=== PATIENT | female | born 1970 | race Asian ===

== ENCOUNTER 2021-02-25 12:06 | Outpatient (REF) | payer MEDICAID, SELFPAY | END 2021-02-25 12:07 | disposition home or self-care (01) | LOC: HO.LAB 12:06 | PROVIDERS: Visit Provider Internal Medicine | DX: Z20.822 Contact with and (suspected) exposure to COVID-19 (principal) | CPT/HCPCS: C9803; U0003; U0005 ==

== ENCOUNTER 2021-02-27 08:30 | Outpatient (REF) | payer MEDICAID, SELFPAY | END 2021-02-27 08:31 | disposition home or self-care (01) | LOC: HO.LAB 08:30 | PROVIDERS: Visit Provider Internal Medicine | DX: Z20.822 Contact with and (suspected) exposure to COVID-19 (principal) | CPT/HCPCS: C9803; U0003; U0005 ==

== ENCOUNTER 2022-11-16 11:03 | Outpatient (REF) | payer MEDICAID, SELFPAY ==
[2022-11-16 15:27] LABS: Iron 27 mcg/dL (30-160); Percent Iron Saturation 7 % (15-50); Total Iron Binding Capacity 395 mcg/dL (228-428); Unsaturated Iron Binding 368 ug/dL
[2022-11-16 15:44] LABS: Ferritin 5 ng/mL (10-250)
[2022-11-16 15:48] LABS: Vitamin B12 412 pg/mL (200-900)
[2022-11-17 09:21] LABS: CT PCR NOT DETECTED (Not Detect.); NG PCR NOT DETECTED (Not Detect.)
[2022-11-17 11:47] LABS: BV Int Neg Control Negative (Negative); BV Int Pos Control Positive (Positive)
[2022-11-23 21:23] LABS: HPV mRNA E6/E7 rflx Not Detected (Not Detected)
== END 2022-11-16 11:04 | disposition home or self-care (01) ==
LOC: HO.CHCLDS 11:03
PROVIDERS: Visit Provider Pediatrics
DX: Z01.419 Encounter for gynecological examination (general) (routine) without abnormal findings (principal); Z11.51 Encounter for screening for human papillomavirus (HPV); D64.9 Anemia, unspecified
CPT/HCPCS: 0353U; 36415; 82607; 82728; 83540; 87480; 87510; 87624; 87660; 88142

== ENCOUNTER 2023-02-23 15:56 | Outpatient (REF) | payer MEDICAID, SELFPAY ==
[2023-02-23 17:20] LABS: MANUAL DIFF FLAG NO
[2023-02-23 17:40] LABS: Basophils Percent Auto 0.4 % (0-2); Eosinophils Absolute Auto 0.1 X10*3/uL (0.0-0.4); Hematocrit 40.1 % (37.0-47.0); Hemoglobin 12.9 g/dl (12.0-16.0); Imm Gran Abs Auto 0.01 X10*3/uL (0.00-0.03); Imm Gran Pct Auto 0.2 % (0.0-0.4); Lymphocytes Absolute Auto 1.8 X10*3/uL (1.2-4.9); Lymphocytes Percent Auto 36.6 % (20-40); Mean Corpuscular HGB Conc 32.2 g/dl (31.0-35.0); Mean Corpuscular Volume 90.1 fL (80.0-98.0); Mean Platelet Volume 10.1 fL (9.4-12.3); Monocytes Absolute Auto 0.5 X10*3/uL (0.1-1.2); Monocytes Percent Auto 9.1 % (2-11); Neutrophils Absolute Auto 2.6 x10*3/uL (2.0-8.3); Neutrophils Percent Auto 51.7 % (45-73); Platelet Count 238 X10*3/uL (160-400); Red Blood Count 4.45 X10*6/uL (4.20-5.50); Red Cell Distribution Width 14.8 % (11.0-16.0); White Blood Count 4.9 X10*3/uL (4.8-10.8)
[2023-02-23 17:59] LABS: TSH reflex Free T4 5.54 uIU/mL (0.32-4.0); Vitamin D 25-OH Total 33.3 ng/mL (>30)
[2023-02-23 18:38] LABS: Free T4 (Free Thyroxine) 0.99 ng/dL (0.71-1.85)
== END 2023-02-23 15:57 | disposition home or self-care (01) ==
LOC: HO.CHCLDS 15:56
PROVIDERS: Visit Provider Pediatrics
DX: E55.9 Vitamin D deficiency, unspecified (principal); E03.9 Hypothyroidism, unspecified; D50.8 Other iron deficiency anemias
CPT/HCPCS: 36415; 82306; 84439; 84443; 85025

== ENCOUNTER 2023-10-20 09:33 | Outpatient (REF) | payer MEDICAID, SELFPAY ==
[2023-10-20 15:01] LABS: MANUAL DIFF FLAG NO
[2023-10-20 15:05] LABS: Basophils Percent Auto 0.7 % (0-2); Eosinophils Absolute Auto 0.3 X10*3/uL (0.0-0.4); Eosinophils Percent Auto 6.2 % (0-4); Hematocrit 37.3 % (37.0-47.0); Hemoglobin 12.6 g/dl (12.0-16.0); Imm Gran Abs Auto 0.02 X10*3/uL (0.00-0.03); Imm Gran Pct Auto 0.5 % (0.0-0.4); Lymphocytes Absolute Auto 1.5 X10*3/uL (1.2-4.9); Mean Corpuscular HGB Conc 33.8 g/dl (31.0-35.0); Mean Corpuscular Volume 91.9 fL (80.0-98.0); Mean Platelet Volume 10.4 fL (9.4-12.3); Monocytes Absolute Auto 0.3 X10*3/uL (0.1-1.2); Monocytes Percent Auto 8.4 % (2-11); Neutrophils Percent Auto 48.2 % (45-73); Platelet Count 218 X10*3/uL (160-400); Red Blood Count 4.06 X10*6/uL (4.20-5.50); Red Cell Distribution Width 12.1 % (11.0-16.0); White Blood Count 4.1 X10*3/uL (4.8-10.8)
[2023-10-20 15:39] LABS: TSH reflex Free T4 1.74 uIU/mL (0.32-4.0)
== END 2023-10-20 09:34 | disposition home or self-care (01) ==
LOC: HO.CHCLDS 09:33
PROVIDERS: Visit Provider Pediatrics
DX: E03.9 Hypothyroidism, unspecified (principal)
CPT/HCPCS: 36415; 84443; 85025

== ENCOUNTER 2024-01-11 09:13 | Outpatient (REF) | payer MEDICAID, SELFPAY ==
[2024-01-11 13:47] LABS: MANUAL DIFF FLAG NO
[2024-01-11 14:04] LABS: Basophils Percent Auto 0.6 % (0-2); Eosinophils Absolute Auto 0.2 X10*3/uL (0.0-0.4); Eosinophils Percent Auto 4.4 % (0-4); Hematocrit 41.1 % (37.0-47.0); Imm Gran Abs Auto 0.03 X10*3/uL (0.00-0.03); Imm Gran Pct Auto 0.6 % (0.0-0.4); Lymphocytes Absolute Auto 1.1 X10*3/uL (1.2-4.9); Lymphocytes Percent Auto 21.6 % (20-40); Mean Corpuscular HGB Conc 34.1 g/dl (31.0-35.0); Mean Corpuscular Hemoglobin 31.2 pg (27.0-33.0); Mean Corpuscular Volume 91.5 fL (80.0-98.0); Mean Platelet Volume 10.2 fL (9.4-12.3); Monocytes Absolute Auto 0.4 X10*3/uL (0.1-1.2); Monocytes Percent Auto 7.7 % (2-11); Neutrophils Absolute Auto 3.4 x10*3/uL (2.0-8.3); Neutrophils Percent Auto 65.1 % (45-73); Platelet Count 233 X10*3/uL (160-400); Red Blood Count 4.49 X10*6/uL (4.20-5.50); White Blood Count 5.2 X10*3/uL (4.8-10.8)
[2024-01-11 14:23] LABS: Cholesterol 184 mg/dL (<200); HDL Cholesterol 49 mg/dL (>40); LDL Cholesterol Calculated 106 mg/dL (<100); Triglycerides 149 mg/dL (<150)
[2024-01-11 14:44] LABS: TSH reflex Free T4 3.52 uIU/mL (0.32-4.0); Vitamin D 25-OH Total 34.1 ng/mL (>30)
[2024-01-11 15:01] LABS: Folate 13.1 ng/mL (> or = 4.0); Vitamin B12 560 pg/mL (200-900)
== END 2024-01-11 09:14 | disposition home or self-care (01) ==
LOC: HO.CHCLDS 09:13
PROVIDERS: Visit Provider Pediatrics
DX: E03.9 Hypothyroidism, unspecified (principal); E55.9 Vitamin D deficiency, unspecified; D50.8 Other iron deficiency anemias
CPT/HCPCS: 36415; 80061; 82306; 82607; 82746; 84443; 85025

== ENCOUNTER 2024-03-13 08:50 | Emergency (ER) | payer OTHER, SELFPAY ==
--- NOTE | ~2024-03-13 | XR_ITS ---
EXAMINATION: XR CHEST CLINICAL INFORMATION: Chest pain COMPARISON: None available. TECHNIQUE: 2 views of the chest were obtained. FINDINGS: No significant abnormality is noted involving the heart, lungs, mediastinum, bony thorax or soft tissues. XR/XR chest 2V IMPRESSION: Unremarkable examination. Electronically signed by: Marcell Loredo MD 03/13/2024 04:41 PM [facility]
[2024-03-13 08:52] VITALS: BP 141/89; PULSE 96; RESP 18; TEMP 36.2; O2SAT 99; BMI 24.5
[2024-03-13 15:11] VITALS: BP 136/80; PULSE 79; RESP 16; TEMP 36.3; O2SAT 100
--- NOTE | 2024-03-13 15:42 | ED_ITS ---
HPI - Back Pain/Injury General Chief Complaint: Back Pain/Injury Stated Complaint: back pain Time Seen by Provider: 03/13/24 15:41 Source: patient and RN notes reviewed Mode of arrival: ambulatory Limitations: no limitations History of Present Illness ED Provider: Marci Payan PA-C HPI Narrative: This is a 53-year-old female, with a history of thyroid disease, who presents emergency department complaints of back pain x5 days. Patient states that last week she used a back massager, she woke up the next day and had worsening back pain. She has been applying warm compresses, as well as topical turmeric to the area which has provided her without any relief. She states that she noticed a rash in the area that is causing her pain 2 days ago. She also reports pain in the left side of her chest, where this rashes. She denies any shortness for breath. No fevers, chills, abdominal pain, nausea, vomiting or diarrhea. Denies history of similar symptoms in the past. No numbness, tingling, or weakness. No other complaints or concerns at this time. MD elicited complaint: back pain Onset (ago): day(s) Timing: constant Similar Symptoms Previously: No Quality: burning and aching Location: thoracic spine Radiation: chest Exacerbating factors: none Relieving factors: none Associated symptoms: denies other symptoms Work related injury: No Related Data Previous Rx's ?Medication ?Instructions ?Recorded oxycodone 5 mg tablet 5 mg PO Q6H PRN pain #7 tabs 03/13/24 prednisone 20 mg tablet 40 mg (2 x 20 mg) PO DAILY 5 days 03/13/24 #10 tabs valacyclovir 1 gram tablet 1,000 mg PO TID 7 days #21 tabs 03/13/24 Allergies Allergy/AdvReac Type Severity Reaction Status Date / Time No Known Allergies Allergy Verified 03/13/24 08:52 Review of Systems 2 Review of Systems: Yes all other systems are reviewed and are negative Constitutional: Constitutional: Reports as per [facility] Social History Social History Advance Directives: No Advance Directives Information Provided: Yes Do you have a plan to hurt others: No Plan Physical Exam 2 Vital Signs: Vital Signs: Last Vital Signs Temp 98.3 F 03/13/24 18:55 Pulse 68 03/13/24 18:55 Resp 16 03/13/24 18:55 BP 146/83 H 03/13/24 18:55 Pulse Ox 99 03/13/24 18:55 O2 Del Method Room Air 03/13/24 18:55 BMI result Body Mass Index 24.5 Const: General: cooperative, comfortable and no acute distress O rientation/consciousness: patient oriented x3 Limitations: no limitations HEENT: Head: Yes normal to inspection, Yes normocephalic and Yes atraumatic Ears: hearing grossly normal bilaterally General nose exam: Normal external nose present Face and sinus: Yes normal facial exam Mouth: Normal oral and palatal mucosa present, oropharynx normal and moist mucous membranes Throat: Yes posterior oropharynx normal Eyes: General: appearance normal, both eyes and all related structures E yelids: Yes eyelids normal Conjunctivae: conjunctivae normal Sclerae: s clerae normal Pupils: Equal, round and reactive pupils present EOM: EOMs intact bilaterally Neck: Neck: Yes normal visual inspection, Yes full ROM and Yes no lymphadenopathy Lymphatic: no lymphadenopathy noted Chest: Chest palpation & inspection: normal inspection of the chest Resp: Effort & Inspection: normal respiratory effort and able to speak in complete sentences Auscultation: clear to auscultation bilaterally, no crackles, no rales, no rhonchi and no wheezes Cardio: Rate: regular rate Rhythm: regular rhythm Heart sounds: S1 normal heart sound present and S2 normal heart sound present GI: Inspection: Yes normal to inspection Skin: Other: Extensive herpetic lesion, vesicular clusters noted overlying the left thoracic back radiating into just below the left breast. Does not cross the midline. Tender to light palpation Trauma: no lacerations or abrasions Wounds: no wounds Neuro: General: patient oriented x3 and moves all extremities Cranial nerves: Yes Equal, round and reactive pupils present Extrem: General: Yes normal to inspection Right upper extremity: normal to inspection Left upper extremity: normal to inspection Right lower extremity: normal to inspection Left lower extremity: normal to inspection Medications Administered Discontinued Medications Generic Name Dose Route Start Last Admin Trade Name Freq PRN Reason Stop Dose Admin Prednisone 40 mg 03/13/24 18:01 03/13/24 18:10 Prednisone 20 Mg Tablet PO 03/13/24 18:02 40 mg ONCE ONE Administration Valacyclovir HCl 1,000 mg 03/13/24 18:01 03/13/24 18:10 Valacyclovir Hcl 1,000 Mg Tablet PO 03/13/24 18:02 1,000 mg ONCE ONE Administration Medical Decision Making Medical Decision Making [facility] Narrative: This is a 53-year-old female who presents emergency department with complaints of left-sided back pain for the last week. Patient had pain in the developed a rash. Rash is consistent with herpes zoster. Discussed with patient. Given she reports that she has had some pain in her chest, which has been constant, likely secondary to the rash, we will obtain chest x-ray, EKG and basic labs. Chest x-ray unremarkable. EKG normal sinus rhythm, labs revealing no electrolyte derangement, no significant leukopenia or leukocytosis. Will discharge patient on valacyclovir, and prednisone, 1st doses given in the department. She states that her pain is well controlled with Tylenol however will give short course of oxycodone should her pain worsened. She understands and agrees with the overall plan. Given strict return precautions. Patient stable for discharge Differential Diagnosis Differential Diagnoses: The differential diagnosis associated with the presentation includes Herpes zoster, cellulitis, muscle strain, contact dermatitis Lab Data [facility] Lab Attestation statement: I reviewed the patient's lab results. See [facility] 03/13/24 16:29 03/13/24 16:29 Labs: Lab Results 03/13/24 Range/Units 16:29 WBC 4.5 L (4.8-10.8) X10*3/uL RBC 4.47 (4.20-5.50) X10*6/uL Hgb 13.7 (12.0-16.0) g/dl Hct 40.8 (37.0-47.0) % MCV 91.3 (80.0-98.0) fL MCH 30.6 (27.0-33.0) pg MCHC 33.6 (31.0-35.0) g/dl RDW 11.9 (11.0-16.0) % Plt Count 178 (160-400) X10*3/uL MPV 9.2 L (9.4-12.3) fL Immature Gran % (Auto) 0.2 (0.0-0.4) % Neut % (Auto) 54.7 (45-73) % Lymph % (Auto) 26.4 (20-40) % Carroll % (Auto) 12.1 H (2-11) % Eos % (Auto) 6.2 H (0-4) % Baso % (Auto) 0.4 (0-2) % Lymph # (Auto) 1.2 (1.2-4.9) X10*3/uL Carroll # (Auto) 0.6 (0.1-1.2) X10*3/uL Eos # (Auto) 0.3 (0.0-0.4) X10*3/uL Baso # (Auto) 0.0 (0.0-0.2) X10*3/uL Abs Immat Gran (auto) 0.01 (0.00-0.03) X10*3/uL Absolute Neuts (auto) 2.5 (2.0-8.3) x10*3/uL Absolute Nucleated RBC 0.000 (0.0-0.012) X10*3/uL Nucleated RBC % (auto) 0.0 (0.0-0.2) /100WBC Sodium 139 (135-145) mmol/L Potassium 3.9 (3.3-5.1) mmol/L Chloride 106 (96-108) mmol/L Carbon Dioxide 27 (22-29) mmol/L Anion Gap 10 L (12-20) BUN 9 (9-16) mg/dL Creatinine 0.74 (0.5-1.4) mg/dL Estim Creat Clear Calc 78.2 Estimated GFR > 60 Random Glucose 139 H (60-115) mg/dL Calcium 9.0 (8.4-10.2) mg/dL Total Bilirubin 0.3 (0.0-1.0) mg/dL AST 28 (5-31) U/L ALT 24 (0-31) U/L Alkaline Phosphatase 75 (39-117) U/L Troponin I High Sens < 2.7 (<3.5-17.0) ng/L Total Protein 7.3 (6.5-8.0) g/dL Albumin 4.1 (3.5-5.0) g/dL Independent Interpretation I performed an independent interpretation of an: EKG Interpretation: EKG normal sinus rhythm at a ventricular rate of 74 beats per minute, no ST elevation or depression. Radiology Impression Discussion of test interpretation with radiology: I have reviewed the radiologist's reading. Radiologist Impression: XR/XR chest 2V IMPRESSION: Unremarkable examination. Electronically signed by: Marcell Loredo MD 03/13/2024 04:41 PM [facility] Dictated By: Marcell Loredo MD Discharge Plan Discharge Clinical Impression: Herpes zoster Patient Disposition: Home, Self-Care Instructions: Shingles (ED) Additional Instructions: You were seen in the emergency department due to back pain. You have herpes zoster, this is a virus caused by the chickenpox virus. Please take prescribed medication as directed. We gave you your 1st dose of the antiviral here in the department as well as prednisone. Please take valacyclovir 3 times per day for 7 days. Please take prednisone once per day for 5 days. Please be advised prednisone can give energy, I would take this in your morning or afternoon dosage. Please take Tylenol as needed for pain. You have severe pain, please take oxycodone only needed for severe pain only. Please be advised that this is addictive, can cause drowsiness, do not drink alcohol or operate any heavy machinery while taking this medication. Please follow-up with your primary care physician. If any new or worsening symptoms occur including but not limited to severe chest pain, shortness of breath, please seek emergent care. Prescriptions: New valacyclovir 1 gram tablet 1,000 mg PO TID 7 Days Qty: 21 0RF prednisone 20 mg tablet 40 mg PO DAILY 5 Days Qty: 10 0RF oxycodone 5 mg tablet 5 mg PO Q6H PRN (Reason: pain) Qty: 7 0RF Rx Instructions: Partial Fill upon patient request. Interventions: ED Discharge Assessment Last Done: 03/13/24 18:55 Discharge Date/Time: 03/13/24 18:56 Print Language: Nicolette
--- NOTE | 2024-03-13 16:02 | ECG_ITS ---
Test Reason : CHEST PAIN Blood Pressure : / mmHG Vent. Rate : 074 BPM Atrial Rate : 074 BPM P-R Int : 146 ms QRS Dur : 076 ms QT Int : 388 ms P-R-T Axes : 039 056 065 degrees QTc Int : 430 ms Normal sinus rhythm Normal ECG No previous ECGs available Referred By: Marci Payan Electronically Signed By:Jordon Ochoa
[2024-03-13 16:36] LABS: MANUAL DIFF FLAG NO
[2024-03-13 16:45] LABS: Basophils Percent Auto 0.4 % (0-2); Eosinophils Absolute Auto 0.3 X10*3/uL (0.0-0.4); Eosinophils Percent Auto 6.2 % (0-4); Hematocrit 40.8 % (37.0-47.0); Hemoglobin 13.7 g/dl (12.0-16.0); Imm Gran Abs Auto 0.01 X10*3/uL (0.00-0.03); Imm Gran Pct Auto 0.2 % (0.0-0.4); Lymphocytes Absolute Auto 1.2 X10*3/uL (1.2-4.9); Lymphocytes Percent Auto 26.4 % (20-40); Mean Corpuscular HGB Conc 33.6 g/dl (31.0-35.0); Mean Corpuscular Hemoglobin 30.6 pg (27.0-33.0); Mean Corpuscular Volume 91.3 fL (80.0-98.0); Mean Platelet Volume 9.2 fL (9.4-12.3); Monocytes Absolute Auto 0.6 X10*3/uL (0.1-1.2); Monocytes Percent Auto 12.1 % (2-11); Neutrophils Absolute Auto 2.5 x10*3/uL (2.0-8.3); Neutrophils Percent Auto 54.7 % (45-73); Platelet Count 178 X10*3/uL (160-400); Red Blood Count 4.47 X10*6/uL (4.20-5.50); Red Cell Distribution Width 11.9 % (11.0-16.0); White Blood Count 4.5 X10*3/uL (4.8-10.8)
[2024-03-13 16:56] LABS: Alanine Aminotransferase 24 U/L (0-31); Albumin Level 4.1 g/dL (3.5-5.0); Alkaline Phosphatase 75 U/L (39-117); Anion Gap 10 (12-20); Aspartate Amino Transferase 28 U/L (5-31); Bilirubin Total 0.3 mg/dL (0.0-1.0); Blood Urea Nitrogen 9 mg/dL (9-16); Carbon Dioxide 27 mmol/L (22-29); Chloride 106 mmol/L (96-108); Creatinine Clr Calc Pharmacy 78.2; Estimated Glomerular Filt Rate > 60; Glucose Random 139 mg/dL (60-115); Potassium 3.9 mmol/L (3.3-5.1); Sodium 139 mmol/L (135-145); Total Protein 7.3 g/dL (6.5-8.0)
[2024-03-13 17:07] LABS: Troponin-I High Sensitivity < 2.7 ng/L (<3.5-17.0)
[2024-03-13 18:02] VITALS: BP 146/83; PULSE 68; RESP 16; TEMP 36.8; O2SAT 99
[2024-03-13] MEDS: predniSONE 20 MG TABLET 40 MG PO (18:10)
[2024-03-13] MEDS: valACYclovir HCL 1,000 MG TABLET 1000 MG PO (18:10)
[2024-03-13 18:55] VITALS: BP 146/83; PULSE 68; RESP 16; TEMP 36.8; O2SAT 99
== END 2024-03-13 18:56 | disposition home or self-care (01) ==
PROVIDERS: Physician Assistant Medical; Emergency Provider Emergency Medicine
DX: B02.9 Zoster without complications (principal); M54.9 Dorsalgia, unspecified; R21 Rash and other nonspecific skin eruption; R07.9 Chest pain, unspecified
CPT/HCPCS: 36415; 71046; 80053; 84484; 85025; 93005; 99283; 99284

== ENCOUNTER → 2024-03-13 16:02 | Outpatient (BNV) | payer SELFPAY | PROVIDERS: Emergency Provider Emergency Medicine; Visit Provider Internal Medicine Cardiovascular Disease | DX: R07.9 Chest pain, unspecified (principal) | CPT/HCPCS: 93010 ==

== ENCOUNTER 2024-08-24 09:06 | Outpatient (REF) | payer OTHER, SELFPAY ==
--- OUTSIDE RECORDS SUMMARY | 2024-08-24 09:18 | XMS_ITS | Clinical Summary ---
Author Organization [facility] Address [address] [place] [address] Phone Care Team Providers Care Special Events Manager Name Role Phone Wendy Jensen MD Primary Care Provider [phone] Social History Tobacco Use Types Packs/Day Years Used Date Smoking Tobacco: Never Assessed Comments No Sex and Gender Information Value Date Recorded Sex Assigned at Not on file Legal Sex Female 6:10 PM EST Gender Identity Not on file Sexual Orientation Not on file Obstetrics History Para Term AB IAB SAB Ectopic Multiple Livin g Live Births 2 Last Filed Vital Signs Vital Sign Reading Time Taken Comments Blood Pressure - - Pulse - - Temperature - - Respiratory Rate - - Oxygen Saturation - - Inhaled Oxygen Concentration - - Weight 65.8 kg (145 lb) 05/03/2024 10:06 AM EST Height 162.6 cm (5' 4 ) 05/03/2024 10:06 AM EST Body Mass Index 24.89 05/03/2024 10:06 AM EST Plan of Treatment Health Maintenance Due Date Last Done Comments Hepatitis B Vaccines (1 of 3 - 19+ 3-dose series) 1988 Pneumococcal Vaccine: 50+ Years (1 of 1 - PCV) 10/24/2019 Zoster Vaccines (1 of 2) 10/24/2019 HIV Screening 05/31/2023 Hepatitis C Screening 05/31/2023 Social Influencers of Health Screening 05/31/2023 COVID-19 Vaccine ( - 2023-2 5 season) 2024 04/27/2022, 09/14/2020, 08/24/2020 Depression Screening 04/10/2025 04/10/2024 Cervical Cancer Screening: P ap Smear 11/16/2025 11/16/2022 Colorectal Cancer Screening: FIT-DNA (Cologuard) 12/09/2025 12/09/2022, 12/09/2022 Breast Cancer Screening 05/03/2026 05/03/19, 11/04/2022 DTaP,Tdap,and Td Vaccines (2 - Td or Tdap) 03/30/2028 03/30/2018 Influenza Vaccine Completed 01/10/2024, 02/23/2023, 03/30/2018 HIB Vaccines Aged Out No longer eligi ble based on patient's age to complete this topic HPV Vaccines Aged Out No longer eligi ble based on patient's age to complete this topic Hepatitis A Vaccines Aged Out No long er eligible based on patient's age to complete this topic IPV Vaccines Aged Out No longer eligi ble based on patient's age to complete this topic MMR Vaccines Aged Out No longer eligi ble based on patient's age to complete this topic Meningococcal ACWY Vaccine Aged Out N o longer eligible based on patient's age to complete this topic Meningococcal B Vaccine Aged Out No l onger eligible based on patient's age to complete this topic Pneumococcal Vaccine: Pediatrics (0 to 5 Years) and At-Risk Patients (6 to 64 Years) Aged Out No longer eligible b ased on patient's age to complete this topic RSV Immunization Patients Under 20 months Aged Out No longer eligible b ased on patient's age to complete this topic Varicella Vaccines Aged Out No longer eligible based on patient's age to complete this topic Procedures Procedure Name Priority Date/Time Associated Diagnosis Comments MG MAMMO DIGITAL SCREENING W DC BILAT Routine 05/03/2024 10:12 AM EST Encounter for screening mammogram for malignant neoplasm of breast from Last 3 Months or Most Recently Relevant to Health Maintenance Results * MG Mammo Digital Screening w Dc bilat (05/03/2024 10:12 AM EST) Anatomical Region Laterality Modality Breast Bilateral Mammography 05/03/2024 10:2 3 AM EST Impressions 05/03/2024 10:29 AM EST No mammographic evidence of malignancy. A negative mammogram in the presence of a clinically suspicious palpable abnormality does not preclude the possibility of malignancy or alter the indications for biopsy. PQRI CPT II 3342F Code 46300, 32302 PQRI 225 CPT II 7025F TISSUE DENSITY: There are scattered areas of fibroglandular density. (BI-RADS category B) IMPRESSION: Benign. BI-RADS CATEGORY: 2 - BENIGN RECOMMENDATION: Screening bilateral mammogram is recommended in 1 year. Mammo Location: [facility], [address] [place] [address] -------- FINAL REPORT -------- Dictated By: Vikas Aguilar Dictated Date: 05/03/2024 10:23 ET Assigned Physician: Vikas Aguilar Reviewed and Electronically Signed By: Vikas Aguilar Signed Date: 05/03/2024 10:29 ET Workstation ID: [id number] Transcribed By: Self Edit Transcribed Date: 05/03/2024 10:23 ET Narrative 05/03/2024 10:29 AM EST CLINICAL: The patient is a 53 years Female presenting for routine screening mammography. COMPARISON: 11/09/2022 and 10/11/2022. ?? TECHNIQUE: Full-field digital mammography of the breasts bilaterally consisting of tomosynthesis in MLO and CC projection is performed in the [facility] 2000-D unit. ??Computer aided detection utilizing the [employer] system was utilized. FINDINGS: The breasts are seen to be composed of a combination of fatty and fibroglandular elements. ??Vascular calcifications are again noted bilaterally. ??There is no suspicious cluster of microcalcifications, mass, or area of architectural distortion. There is no skin thickening or nipple retraction. Procedure Note Vikas Aguilar MD - 05/03/2024 CLINICAL: The patient is a 53 years Female presenting for routinescreening mammography. COMPARISON: 11/09/2022 and 10/11/2022. TECHNIQUE: Full-field digital mammography of the breasts bilaterallyconsisting of tomosynthesis in MLO and CC projection [facility]. Computer aided detection utilizing the iCADsystem was utilized. FINDINGS: The breasts are seen to be composed of a combination of fattyand fibroglandular elements. Vascular calcifications are again notedbilaterally. There is no suspicious cluster of microcalcifications, mass,or area of architectural distortion. There is no skin thickening or nippleretraction. IMPRESSION: No mammographic evidence of malignancy. A negative mammogram in the presence of a clinically suspicious palpableabnormality does not preclude the possibility of malignancy or alter theindications for biopsy. PQRI CPT II 3342F Code 99070, 98426 PQRI 225 CPT II 7025F TISSUE DENSITY: There are scattered areas of fibroglandular density.(BI-RADS category B) IMPRESSION: Benign. BI-RADS CATEGORY: 2 - BENIGN RECOMMENDATION: Screening bilateral mammogram is recommended in 1 year. Mammo Location: [facility], [address] [place] [id number] -------- FINAL REPORT -------- Dictated By: Vikas Aguilar Dictated Date: 05/03/2024 10:23 ET Assigned Physician: Vikas Aguilar Reviewed and Electronically Signed By: Vikas Aguilar Signed Date: 05/03/2024 10:29 ET Workstation ID: [id number] Transcribed By: Self Edit Transcribed Date: 05/03/2024 10:23 ET Wendy Jensen MD IMG BI PROCEDURES Final Resul t from Last 3 Months or Most Recently Relevant to Health Maintenance Insurance MEDICA[place] [facility] PL[facility] Care Teams Special Events Manager Relationship Specialty Start Date End Date Wendy Jensen MD [address] [place] [address] PCP - General Internal Medicine 05/03/24
--- OUTSIDE RECORDS SUMMARY | 2024-08-24 09:18 | XMS_ITS | Clinical Summary ---
Author Organization [employer] Address [address] [facility] 7t [place] [address] Care Team Providers Care Tin Flopper Name Role Phone Wendy Jensen MD Primary Care Provider [phone] Allergies No known active allergies Medications cholecalciferol (Vitamin D-3) 50 MCG (1999) capsule Take 1 capsule (50 mcg) by mouth in the morning. 90 capsule 3 06/15/2023 Active levothyroxine (Synthroid) 125 MCG tablet TAKE 1 TABLET BY MOUTH EVERY DAY 90 tablet 1 04/10/2024 Active Active Problems Problem Noted Date Diagnosed Date Herpes zoster without complication 04/10/2024 Vitamin D deficiency 11/16/2022 Anemia 11/16/2022 Acquired hypothyroidism 09/23/2022 Encounters Date Type Department Care Team Description 08/23/2024 10:30 AM EDT Office Visit [facility] MED & PEDS [address] [place] [address] Wendy Jensen MD Acquired hypothyroidism (Primary Dx); Vitamin D deficiency; Iron deficiency anemia secondary to inadequate dietary iron intake; Encounter for immunization 08/23/2024 Telephone [facility] [address] [place] [address] Wendy Jensen MD Insurance 08/23/2024 Travel 08/22/2024 Telephone [facility] MEDICINE [address] [place] [address] Wendy Jensen MD Nurse Triage 06/06/2024 Telephone [facility] [address] [place] [address] Wendy Jensen MD Pre Op from Last 3 Months Immunizations Name Administration Dates Next Due Influenza injectable quadriv alent IIV4 with preservative 03/30/2018 Influenza injectable quadrivalent preservative f ree 02/23/2023 Influenza, seasonal, injectable, preservative fr ee 01/10/2024 Pneumococcal Conjugate PCV 20 08/23/2024 Tdap 03/30/2018 Family History Medical History Relation Name Comments Diabetes Father Heart attack Mother Brain Aneurysm Sister Relation Name Status Comments Father Mother Sister Social History Tobacco Use Types Packs/Day Years Used Date Smoking Tobacco: Never Passive Smoke Exposure: Never Smokeless Tobacco: Never Tobacco Cessation:Counseling Given: Not Answered Depression Answer Date Recorded Patient Health Questionnaire-9 Score 7 04/10/2024 Patient Health Questionnaire-9 Score 7 04/10/2024 Last PHQ-9: Questionnaire Data Not on file 1 06/11/2023 Housing Stability Answer Date Recorded What is your housing situation today? I have leatha brothers 04/10/[address] you li ve. Do you have problems with any of the following? None of the above 04/10/2024 Food Insecurity Answer Date Recorded Within the past 12 months, y ou worried that your food would run out before you got money to buy more: Never True 04/10/2024 Within the past 12 months,th e food you bought just didn't last and you didn't have enough money to get more: Never True 01/2024 Transportation Answer Date Recorded In the past 12 months, has l ack of transportation kept you from medical appts, meetings, work or from getting things needed for daily living? No 04/10/2024 Utilities Answer Date Recorded In the past 12 months, has t he electric, gas, oil or water company threatened to shut off services in your home? No 04/10/2024 Depression Answer Date Recorded Patient Health Questionnaire-2 Score 3 04/10/2024 Internet Access Answer Date Recorded Internet Access Q1 Yes 04/10/2024 Internet Access Q2 Not on file 04/10/2024 Education Answer Date Recorded What is the highest level of school you have completed or the highest degree you have received? Bachelor's degree (e.g., BA, AB, BS) 09/23/2022 Comments Unknown Sex and Gender Information Value Date Recorded Sex Assigned at Female 09/23/2022 9:39 AM EDT Legal Sex Female 2:27 PM EDT Gender Identity Female 09/23/2022 9:39 AM EDT Sexual Orientation Straight 09/23/2022 9: 42 AM EDT Last Filed Vital Signs Vital Sign Reading Time Taken Comments Blood Pressure 120/70 08/23/2024 10:24 AM EDT Pulse 72 08/23/2024 10:24 AM EDT Temperature 36.2 ??C (97.1 ??F) 08/23/2024 10:24 AM E DT Respiratory Rate 12 08/23/2024 10:24 AM EDT Oxygen Saturation 97% 03/23/2024 3:11 PM EST Inhaled Oxygen Concentration - - Weight 66.2 kg (146 lb) 08/23/2024 10:24 AM EDT Height 170.2 cm (5' 7 ) 08/23/2024 10:24 AM EDT Body Mass Index 22.87 08/23/2024 10:24 AM EDT Plan of Treatment Upcoming Encounters Date Type Department Care Team ([facility] st Contact Info) Description 09/27/2024 10:00 AM EDT Office Visit [facility] MED & PEDS [address] [place] [address] Wendy Jensen MD [address] [place] [address] Health Maintenance Due Date Last Done Comments CT Colonography 1970 Colonoscopy 1970 FIT 1970 FOBT 1970 HIV Screening 1970 Sigmoidoscopy 1970 Hepatitis B Vaccines (1 of 3 - 19+ 3-dose series) 1988 Zoster Vaccines (1 of 2) 10/24/2019 COVID-19 Vaccine ( season) 2024 04/27/2022, 09/14/2020, 08/24/2020 Tobacco Screening 03/23/2025 03/23/2024 Alcohol/Substance Use Screening 04/10/2025 04/10/2024 Depression Screening 04/10/2025 04/10/2024, 04/10/20 24 SDOH Screening 04/10/2025 04/10/2024 Colorectal Cancer Screening 12/09/2025 FIT DNA/Cologuard 12/09/2025 12/09/2022 Mammogram 05/03/2026 05/03/2024, 06/2024, 05/03/2024, Additional history exists Cervical Cancer Screening 11/17/2027 HPV/Cotest 11/17/2027 11/16/2022 Pap Smear 11/17/2027 11/16/2022 DTaP/Tdap/Td Vaccines (2 - Td or Tdap) 03/30/2028 03/30/2018 RSV Patients and Patients Aged 60 years or older (1 - 1-dose 75+ series) 2044 Hepatitis C Screening Completed 09/24/2022 Influenza Vaccine Completed 01/10/2024, , 03/30/2018 Pneumococcal Vaccine: 50+ Years Completed 08/23/2024 HIB Vaccines Aged Out No longer eligi [...] patient's age to complete this topic Meningococcal Vaccine Aged Out No lesley shaye eligible based on patient's age to complete this topic RSV under 20 months Aged Out No longe r eligible based on patient's age to complete this topic Rotavirus Vaccines Aged Out No longer eligible based on patient's age to complete this topic Procedures Procedure Name Priority Date/Time Associated Diagnosis Comments MAMMOGRAPHY Routine 05/03/2024 1:57 PM EST HPV MRNA E6/E7 REFLEX TO HPV 16, 18/45 Routine 11/16/2022 11:00 AM EDT PAP SMEAR Routine 11/16/2022 11:00 AM EDT Anemia, unspecified type Acquired hypothyroidism Vitamin D deficiency Encounter for gynecological examination with Papanicolaou smear of cervix HEPATITIS PANEL, GENERAL Routine 09/24/2022 9:31 AM EDT Acquired hypothyroidism from Last 3 Months or Most Recently Relevant to Health Maintenance Results * Mammography (05/03/2024 1:57 PM EST) Anatomical Region Laterality Modality Other us Historical Provider HEALTH MAINTENANCE Final Result * HPV mRNA E6/E7 w/Reflex to HPV Genotypes 16, 18/45 (11/16/2022 11:00 AM EDT) HPV nRNA E6/E7 Not Detected Not Detected [facility] Comment:Methodology: Transcr iption-Mediated AmplificationThis assay detects E6/E7 viral messenger RNA (mRNA) from 14high-risk HPV types (16,18,31,33,35,39,45,51,52,56,58,59,66,68).Cervical sources are required for HPV testing.If a vaginal source from a patient who has had atotal hysterectomy with removal of cervix wassubmitted, please contact the testing laboratoryfor alternative testing options.For additional information, please refer tohttp://education.[employer]am[employer] technologies/faq/MQE296c9(This link if provided for information/educational purposes only.)THIS TEST WAS PERFORMED AT:[facility] [place] [phone] SHEIKH MD HPV mRNA E6/E7 [facility] HPV 16 RNA [facility] HPV 18/45 RNA [facility] 11/16/2022 11:0 0 AM EDT 11/18/2022 8:30 AM EDT us Wendy Jensen MD LAB CYTOLOGY ORDERABLES Final Result [facility] [address] [place] [phone] [phone] * Pap Smear (11/16/2022 11:00 AM EDT) Swab Cervix uteri structure / Unknown 11/16/2022 11:00 AM EDT 11/18/2022 8:30 AM EDT Narrative [facility] - 12/05/2022 5:07 PM EDT ----- ------- Name: Ana Pacheco ? Age/Sex: 52/F ? : 1970 Unit#: [id number] ?? Attend Dr: Wendy Jensen MD ?Re11/16/22 ?Status: DEP REF ? Location: [facility] ? Disch: ? ----- ------- SPEC : [id number] ? RECD: 11/18/22 ? STATUS: ??SOUT ? REQ NUM: [id number] ? DICKSON: 11/16/22-1099 ? SUBM DR: Wendy Jensen MD ? ENTERED: ??11/18/22120 ?SP TYPE: Pap Smr ?OTHR DR: ? ORDERED: ??Pap Smear ? Interpretation ?? Satisfactory for evaluation. ?? Negative for intraepithelial lesion or malignancy. ? HPV mRNA E6/E7: ?NOT DETECTED ? This assay detects E6/E7 viral messenger RNA (mRNA) from 14 high-risk HPV types (16, 18, ?? 31, 33, 35, 39, 45, 51, 52, 56, 58, 59, 66, 68) ? HPV testing performed by [facility], [place], [place]. ??See reference laboratory ?? portion of the EMR for entire report. ?Clinical Information LMP: 10/30/22 Previous PAP test: Unknown date/findings ? Material Received ?? ThinPrep-Cervical ----- ------- Signed (signature on file) Marci Jaeger 12/05/221706 ? ----- ------- ? END OF REPORT ? us Wendy Jensen MD LAB CYTOLOGY ORDERABLES Final Result Performing Organization Address City/[facility]/ZIP Co de Phone Number [facility] [address] [place] [address] [phone] * (ABNORMAL) Hepatitis Panel, General (09/24/2022 9:31 AM EDT) Hepatitis A Antibody Total REACTIVE( A) NON-REACT GAYLE [employer] [facility] [place] Comment: For additional information, please refer to http://Mod[employer]amaze technologies/faq/ALG475 (This link is being provided for informational/ educational purposes only.) Hepatitis B Surface Antibody QL NON-REACT GAYLE NON-REACT GAYLE [employer] [facility] [place] Hepatitis B Surface Ag NON-REACT GAYLE NON-REACT GAYLE [employer] [facility] [place] Hepatitis B Core Antibody Total NON-REACT GAYLE NON-REACT GAYLE [employer] [place] Hepatitis C Antibody NON-REACT GAYLE NON-REACT GAYLE [employer] [place] Index 0.23 <1.00 [employer] [facility] [place] Comment: HCV antibody was non-reactive. There is no laboratory evidence of HCV infection. In most cases, no further action is required. However, if recent HCV exposure is suspected, a test for HCV RNA (test code 30226) is suggested. For additional information please refer to http://Modlar.[employer]am[employer] technologies/faq/WNB74t5 (This link is being provided for informational/ educational purposes only.) 09/24/2022 9:31 AM EDT 09/24/2022 9:31 AM EDT Narrative [facility] - 09/25/2022 7:29 AM EDT FASTING:YES FASTING: YES us Wendy Jensen MD LAB BLOOD ORDERABLES Final Re sult Performing Organization Address City/[facility]/ZIP Co de Phone Number [facility] [address], [place] [address] [employer] [place] [facility] [address] [place] [address] from Last 3 Months or Most Recently Relevant to Health Maintenance Insurance [facility] Care Teams Tin Flopper Relationship Specialty Start Date End Date Wendy Jensen MD [address] [place] [id number] PCP - General Internal Medicine 09/01/22
--- OUTSIDE RECORDS SUMMARY | 2024-08-24 09:18 | XMS_ITS | Encounter Summary ---
Author Organization [employer] Address [address] [facility] 7t [place] [address] Care Team Providers Care Boiler House Mechanic Name Role Phone Wendy Jensen MD Primary Care Provider [phone] Reason for Visit * Reason Onset Date Comments Nurse Triage 08/22/2024 Encounter Details Date Type Department Care Team (Late st Contact Info) Description 08/22/2024 Telephone [facility] MEDICINE [address] [place] [address] Wendy Jensen MD [address] [place] [address] Nurse Triage Social History Tobacco Use Types Packs/Day Years Used Date Smoking Tobacco: Never Passive Smoke Exposure: Never Smokeless Tobacco: Never Depression Answer Date Recorded Patient Health Questionnaire-9 [...] t he electric, gas, oil or water [employer] threatened to shut off services in your [...] Orientation Straight 09/23/2022 9: 42 AM EDT documented as of this encounter Miscellaneous Notes * Telephone Encounter - Rosa Lane RN - 08/22/2024 3:14 PM EDT called pt to triage, spoke to pt. pt states persistent fatigue, difficulty sleeping, and aching allover. pt denies illness symptoms, fevers, rash, sob, or other associated symptoms. pt requesting appt only with PCP and was given appt tomorrow with PCP at 10:30 for exam. advised home care: rest, fluids, lie down, good nutrition, consistent bedtime, and call back as needed. pt understands and agrees with plan. insurance verified. Protocol Used: Weakness (Generalized) and Fatigue (Adult) Protocol-Based Disposition: See in Office or Video Visit within 3 Days Video visit offer not recorded Positive Triage Question: * Fatigue (i.e., tires easily, decreased energy) and persists > 1 week * All higher-acuity triage questions were negative Care Advice Discussed: * Reassurance and Education - Mild Fatigue or Weakness * Reasons To Call Back - Unable to stand or walk - Passes out - Breathing difficulty occurs - You become worse * Reassurance and Education - Mild Dehydration * Drink Fluids * Rest * Cool Off * Reasons To Call Back - You become worse * Telephone Encounter - Kerri Gaffney - 08/22/2024 1:44 PM EDT Symptoms: Weakness, Sleeping Difficulty, Lethargic (Tired) Outcome: Transfer to a nurse or provider NOW! Reason: Hard to wake up The caller accepted this outcome. [phone] documented in this encounter Plan of Treatment Upcoming Encounters Date Type Department Care Team ([facility] st Contact Info) Description 09/27/2024 10:00 AM EDT Office Visit [facility] MED & PEDS [address] [place] [address] Wendy Jensen MD [address] [place] [address] documented as of this encounter Visit Diagnoses Not on filedocumented in this encounter Additional Health Concerns Assessment Noted Time PHQ-9 Depression Total Score: 7 04/10/20 24 9:33 AM EST documented as of this encounter Care Teams Boiler House Mechanic Relationship Specialty Start Date End Date Wendy Jensen MD [address] [place] [address] PCP - General Internal Medicine 09/01/22 documented as of this encounter
--- OUTSIDE RECORDS SUMMARY | 2024-08-24 09:18 | XMS_ITS | Encounter Summary ---
Author Organization [employer] Address [address] [facility] 7[address] [place] [address] Care Team Providers Care Computer Hardware Developer Name Role Phone Wendy Jensen MD Primary Care Provider [phone] Encounter Details Date Type Department Care Team ([facility] st Contact Info) Description 02/24/2023 Orders Only [facility] MED & PEDS [address] [place], [place] [phone] Wendy Jensen MD [address] [place] [address] Social History Tobacco Use Types Packs/Day Years Used Date Smoking Tobacco: Never Passive Smoke Exposure: Never Smokeless Tobacco: Never Depression Answer Date Recorded Patient Health Questionnaire-9 Score 1 02/23/2023 Patient Health Questionnaire-9 Score 1 02/23/2023 Last PHQ-9: Questionnaire Data Not on file 1 Housing Stability Answer Date Recorded What is your housing situation today? I have leatha brothers 02/15/[address] you li ve. Do you have problems with any of the following? None of the above 02/15/2023 Food Insecurity Answer Date Recorded Within the past 12 months, y ou worried that your food would run out before you got money to buy more: Never True 02/15/2023 Within the past 12 months,th e food you bought just didn't last and you didn't have enough money to get more: Never True Transportation Answer Date Recorded In the past 12 months, has l ack of transportation kept you from medical appts, meetings, work or from getting things needed for daily living? No 02/15/2023 Utilities Answer Date Recorded In the past 12 months, has t he electric, gas, oil or water company threatened to shut off services in your home? No 02/15/2023 Depression Answer Date Recorded Patient Health Questionnaire-2 Score 1 02/23/2023 Education Answer Date Recorded What is the [...] AM EDT documented as of this encounter Plan of Treatment Upcoming Encounters Date Type Department Care Team ([facility] st Contact Info) Description 09/27/2024 10:00 AM EDT Office Visit [facility] MED & PEDS [address] [place] [address] Wendy Jensen MD [address] [place] [address] documented as of this encounter Visit Diagnoses Not on filedocumented in this encounter Additional Health Concerns Assessment Noted Time PHQ-9 Depression Total Score: 1 02/24/20 3:27 PM EDT documented as of this encounter Care Teams Computer Hardware Developer Relationship Specialty Start Date End Date Wendy Jensen MD [address] [place] [address] PCP - General Internal Medicine 09/01/22 documented as of this encounter
--- OUTSIDE RECORDS SUMMARY | 2024-08-24 09:18 | XMS_ITS | Encounter Summary ---
Author Organization [employer] Address [address] [facility] [address] [place] [address] Care Team Providers Care Fabrication Machine Operator Name Role Phone Wendy Jensen MD Primary Care Provider [phone] Encounter Details Date Type Department Care Team (Latest Contact Info) Description 08/23/2024 Travel Social History Tobacco Use Types Packs/Day Years [...] Upcoming Encounters Date Type Department Care Team (Late st Contact Info) Description 09/27/2024 10:00 AM EDT Office Visit [facility] MED & PEDS [address] [place] [address] Wendy Jensen MD [address] [place] [address] documented as of this encounter Visit Diagnoses Not on filedocumented in this encounter Additional Health Concerns Assessment Noted Time PHQ-9 Depression Total Score: 7 04/10/20 24 9:33 AM EST documented as of this encounter Care Teams Fabrication Machine Operator Relationship Specialty Start Date End Date Wendy Jensen MD [address] [place] [address] PCP - General Internal Medicine 09/01/22 documented as of this encounter
--- OUTSIDE RECORDS SUMMARY | 2024-08-24 09:18 | XMS_ITS | Encounter Summary ---
Author Organization [employer] Address [address] [facility] 7t [place] [address] Care Team Providers Care Senior Windows Engineer Name Role Phone Wendy Jensen MD Primary Care Provider [phone] Reason for Visit * Reason Comments Med Refill Encounter Details Date Type Department Care Team ([facility] Contact Info) Description 02/12/2023 Refill [facility] MED & PEDS [address] [place], [place] [phone] Wendy Jensen MD [address] [place] [address] Social History Tobacco Use Types Packs/Day Years Used Date Smoking Tobacco: Never Passive Smoke Exposure: Never Smokeless Tobacco: Never Housing Stability Answer Date Recorded What is [...] off services in your home? No 02/15/2023 Education Answer Date Recorded What is the [...] Description 09/27/2024 10:00 AM EDT Office Visit [facility] MED & PEDS [address] [place] [address] Wendy Jensen MD [address] [place] [address] documented as of this encounter Visit Diagnoses Not on filedocumented in this encounter Care Teams Senior Windows Engineer Relationship Specialty Start Date End Date Wendy Jensen MD [address] [place] [address] PCP - General Internal Medicine 09/01/22 documented as of this encounter
--- OUTSIDE RECORDS SUMMARY | 2024-08-24 09:18 | XMS_ITS | Encounter Summary ---
Author Organization [employer] Address [address] [facility] 7t [place] [address] Care Team Providers Care Realtime Reporter Name Role Phone Wendy Jensen MD Primary Care Provider [phone] Encounter Details Date Type Department Care Team (Latest Contact Info) Description 08/23/2024 10:30 AM EDT Office Visit [facility] [address], [place] [phone] Wendy Jensen MD [address] [place] [address] Acquired hypothyroidism (Primary Dx); Vitamin D deficiency; Iron deficiency anemia secondary to inadequate dietary iron intake; Encounter for immunization Social History Tobacco Use Types Packs/Day Years [...] AM EDT documented as of this encounter Last Filed Vital Signs Vital Sign Reading Time Taken Comments Blood Pressure 120/70 08/23/2024 10:24 AM EDT Pulse 72 08/23/2024 10:24 AM EDT Temperature 36.2 ??C (97.1 ??F) 08/23/2024 10:24 AM E DT Respiratory Rate 12 08/23/2024 10:24 AM EDT Oxygen Saturation - - Inhaled Oxygen Concentration - - Weight 66.2 kg (146 lb) 08/23/2024 10:24 AM EDT Height 170.2 cm (5' 7 ) 08/23/2024 10:24 AM EDT Body Mass Index 22.87 08/23/2024 10:24 AM EDT documented in this encounter Progress Notes * Wendy Jensen MD - 08/23/2024 10:30 AM EDT Subjective Patient ID: Ana Pacheco is a 53 y.o. female who presents for f/u. Ana is a 53-year-old female patient known to me with past medical history of vitamin D deficiency, history of iron deficiency, hypothyroidism etc. here for follow-up. Complains of fatigue but alsoexplains that she wakes up at least once per night due to night sweats from hot flashes since having menopause. She is still vegetarian but believes eats enough protein. No other complaints today. Her only medications are levothyroxine and vitamin D. Works at the [employer]. Her last mammogram was normalin May 2024 and she is up-to-date for Cologuard and Pap smear. Review of Systems Constitutional: Positive for fatigue. Negative for activity change, appetite change, chills, fever and unexpected weight change. Respiratory: Negative for cough, shortness of breath and wheezing. Cardiovascular: Negative for chest pain, palpitations and leg swelling. Gastrointestinal: Negative for abdominal pain and blood in stool. Endocrine: Negative for polydipsia and polyuria. Genitourinary: Negative for decreased urine volume, difficulty urinating, dysuria and hematuria. Musculoskeletal: Negative for arthralgias and gait problem. Skin: Negative for color change and rash. Neurological: Negative for dizziness and headaches. Hematological: Negative for adenopathy. Psychiatric/Behavioral: Negative for dysphoric mood, hallucinations, sleep disturbance and suicidalideas. The patient is not nervous/anxious. Objective BP 120/70 (BP Location: Left arm, Patient Position: Sitting, BP Cuff Size: Adult) Pulse72 Temp 97.1 ??F (36.2 ??C) (Oral) Resp 12 Ht 5' 7 (1.702 m) Wt 146 lb (66.2 kg) BMI 22.87 kg/m?? Physical Exam Constitutional: General: She is not in acute distress. Appearance: Normal appearance. She is not ill-appearing. HENT: Head: Normocephalic. Right Ear: Tympanic membrane and ear canal normal. Left Ear: Tympanic membrane and ear canal normal. Nose: Nose normal. Mouth/Throat: Mouth: Mucous membranes are moist. Pharynx: No oropharyngeal exudate or posterior oropharyngeal erythema. Eyes: Extraocular Movements: Extraocular movements intact. Conjunctiva/sclera: Conjunctivae normal. Pupils: Pupils are equal, round, and reactive to light. Cardiovascular: Rate and Rhythm: Normal rate and regular rhythm. Pulses: Normal pulses. Heart sounds: Normal heart sounds. Pulmonary: Effort: Pulmonary effort is normal. No respiratory distress. Breath sounds: Normal breath sounds. Abdominal: Palpations: Abdomen is soft. Musculoskeletal: General: Normal range of motion. Cervical back: Normal range of motion. Skin: General: Skin is warm. Capillary Refill: Capillary refill takes less than 2 seconds. Coloration: Skin is not jaundiced or pale. Findings: No bruising or rash. Neurological: General: No focal deficit present. Mental Status: She is alert and oriented to person, place, and time. Psychiatric: Mood and Affect: Mood normal. Behavior: Behavior normal. Thought Content: Thought content normal. Judgment: Judgment normal. Assessment/Plan Diagnoses and all orders for this visit: Acquired hypothyroidism Comments: Recheck TFTs as she is due. Currently on 125 mcg daily of levothyroxine and tolerating well. Recheck TFTs due to complaining of tiredness. Orders: - CBC auto differential; Future - Iron And Total Iron Binding Capacity; Future - Magnesium; Future - TSH W/Reflex to FT4; Future - Vitamin B12/Folate, Serum Panel; Future - Vitamin D, 25-Hydroxy, Total, Immunoassay; Future Vitamin D deficiency Comments: Recheck levels today. Takes small dose as replacement daily. Orders: - CBC auto differential; Future - Iron And Total Iron Binding Capacity; Future - Magnesium; Future - TSH W/Reflex to FT4; Future - Vitamin B12/Folate, Serum Panel; Future - Vitamin D, 25-Hydroxy, Total, Immunoassay; Future Iron deficiency anemia secondary to inadequate dietary iron intake Comments: Has history of iron deficiency anemia and is vegetarian. Recheck CBC today and treat if needed. Patient now postmenopausal so less likely to have anemia but since complaining of fatigue we will checkher labs and call with results if abnormal or send normal letter if the normal limits. Orders: - CBC auto differential; Future - Iron And Total Iron Binding Capacity; Future - Magnesium; Future - TSH W/Reflex to FT4; Future - Vitamin B12/Folate, Serum Panel; Future - Vitamin D, 25-Hydroxy, Total, Immunoassay; Future Encounter for immunization Comments: PCV 20 received today without complications. Orders: - PCV-20 VACCINE 6 wks + documented in this encounter Plan of Treatment Upcoming Encounters Date Type Department Care Team ([facility] st Contact Info) Description 09/27/2024 10:00 AM EDT Office Visit [facility] [address] [place] [address] Wendy Jensen MD [address] [place] [address] Scheduled Orders Name Type Priority Associated Diagnoses Orde r Schedule CBC auto differential Lab Routine Acquired hypothyroidism Vitamin D deficiency Iron deficiency anemia secondary to inadequate dietary iron intake Expected: 08/23/2024 (Approximate), Expires: 08/23/2025 Iron And Total Iron Binding Capacity Lab Routine Acquired hypothyroidism Vitamin D deficiency Iron deficiency anemia secondary to inadequate dietary iron intake Expected: 08/23/2024, Expires: 08/23/2025 Magnesium Lab Routine Acquired hypothyroidism Vitamin D deficiency Iron deficiency anemia secondary to inadequate dietary iron intake Expected: 08/23/2024, Expires: 08/23/2025 TSH W/Reflex to FT4 Lab Routine Acquired hypothyroidism Vitamin D deficiency Iron deficiency anemia secondary to inadequate dietary iron intake Expected: 08/23/2024 (Approximate), Expires: 08/23/2025 Vitamin B12/Folate, Serum Panel Lab Routine Acquired hypothyroidism Vitamin D deficiency Iron deficiency anemia secondary to inadequate dietary iron intake Expected: 08/23/2024, Expires: 08/23/2025 Vitamin D, 25-Hydroxy, Total, Immunoassay Lab Routine Acquired hypothyroidism Vitamin D deficiency Iron deficiency anemia secondary to inadequate dietary iron intake Expected: 08/23/2024 (Approximate), Expires: 08/23/2025 documented as of this encounter Visit Diagnoses Diagnosis Acquired hypothyroidism- Primary Unspecified hypothyroidism Vitamin D deficiency Iron deficiency anemia secondary to inadequate dietary iron intake Encounter for immunization documented in this encounter Additional Health Concerns Assessment Noted Time PHQ-9 Depression Total Score: 7 04/10/20 24 9:33 AM EST documented as of this encounter Care Teams Realtime Reporter Relationship Specialty Start Date End Date Wendy Jensen MD [address] [place] [address] PCP - General Internal Medicine 09/01/22 documented as of this encounter
--- OUTSIDE RECORDS SUMMARY | 2024-08-24 09:18 | XMS_ITS | Encounter Summary ---
Author Organization [employer] Address [address] [facility] 7 [place] [address] Care Team Providers Care Acquisition Advisor Name Role Phone Wendy Jensen MD Primary Care Provider [phone] Reason for Visit * Reason Onset Date Comments Insurance 08/23/2024 Encounter Details Date Type Department Care Team ([facility] st Contact Info) Description 08/23/2024 Telephone [facility] [address] [place], [place] [phone] Wendy Jensen MD [address] [place], [place] [phone] Insurance Social History Tobacco Use Types Packs/Day Years [...] encounter Miscellaneous Notes * Telephone Encounter - Ching Vega - 08/23/2024 10:20 AM EDT Pt was advised to call insurance and update PCP/LOC listed for today's appointment visit on 08/23/24. documented in this encounter Plan of Treatment Upcoming Encounters Date Type Department Care Team (Late st Contact Info) Description 09/27/2024 10:00 AM EDT Office Visit [facility] [address] [place] [address] Wendy Jensen MD [address] [place] [address] documented as of this encounter Visit Diagnoses Not on filedocumented in this encounter Additional Health Concerns Assessment Noted Time PHQ-9 Depression Total Score: 7 04/10/20 9:33 AM EST documented as of this encounter Care Teams Acquisition Advisor Relationship Specialty Start Date End Date Wendy Jensen MD [address] [place] [address] PCP - General Internal Medicine 09/01/22 documented as of this encounter
--- OUTSIDE RECORDS SUMMARY | 2024-08-24 09:18 | XMS_ITS | Encounter Summary ---
Author Organization [employer] Address [address] [facility] [address]t [place] [address] Care Team Providers Care Sign Builder Supervisor Name Role Phone Wendy Jensen MD Primary Care Provider [phone] Reason for Visit * Reason Onset Date Comments Appointment Request 02/18/2023 Encounter Details Date Type Department Care Team ([facility] st Contact Info) Description 02/18/2023 Telephone [facility] [address] [place], [place] [phone] Wendy Jensen MD [address] [place] [address] Appointment Request Social History Tobacco Use Types Packs/Day Years [...] encounter Miscellaneous Notes * Telephone Encounter - Page Geiger - 02/18/2023 11:40 AM EDT Tc from requesting a follow up appt due to travel. documented in this encounter Plan of Treatment Upcoming Encounters Date Type Department Care Team ([facility] st Contact Info) Description 09/27/2024 10:00 AM EDT Office Visit [facility] [address] [place] [address] Wendy Jensen MD [address] [place] [address] documented as of this encounter Visit Diagnoses Not on filedocumented in this encounter Care Teams Sign Builder Supervisor Relationship Specialty Start Date End Date Wendy Jensen MD [address] [place] [address] PCP - General Internal Medicine 09/01/22 documented as of this encounter
--- OUTSIDE RECORDS SUMMARY | 2024-08-24 09:19 | XMS_ITS | Encounter Summary ---
Author Organization [employer] Address [address] [facility] [address] [place] [address] Care Team Providers Care Lap Cutter Truer Operator Name Role Phone Wendy Jensen MD Primary Care Provider [phone] Encounter Details Date Type Department Care Team (Late st Contact Info) Description 05/03/2024 Orders Only [facility] [address] [place], [place] [phone] ProviderTami MD Social History Tobacco Use Types Packs/Day Years [...] [facility] [address] [place], [place] [phone] Wendy Jensen MD [address] [place] [address] documented as of this encounter Procedures Procedure Name Priority Date/Time Associated Diagnosis Comments HM MAMMOGRAPHY Routine 05/03/2024 1:57 PM EST documented in this encounter Results * Hm Mammography (05/03/2024 1:57 PM EST) Anatomical Region Laterality Modality Other us Historical Provider HEALTH MAINTENANCE Final Result documented in this encounter Visit Diagnoses Not on filedocumented in this encounter Additional Health Concerns Assessment Noted Time PHQ-9 Depression Total Score: 7 04/10/20 24 9:33 AM EST documented as of this encounter Care Teams Lap Cutter Truer Operator Relationship Specialty Start Date End Date Wendy Jensen MD [address] [place] [address] PCP - General Internal Medicine 09/01/22 documented as of this encounter
--- OUTSIDE RECORDS SUMMARY | 2024-08-24 09:19 | XMS_ITS | Encounter Summary ---
Author Organization [employer] Address [address] [facility] 7t [place] [address] Care Team Providers Care Continuity Tester Name Role Phone Wendy Jensen MD Primary Care Provider [phone] Reason for Visit * Reason Onset Date Comments Nurse Triage 12/07/2022 Encounter Details Date Type Department Care Team ([facility] st Contact Info) Description 12/07/2022 Telephone [facility] [address] [place], [place] [phone] Wendy Jensen MD [address] [place] [address] Nurse Triage Social History Tobacco Use Types Packs/Day Years Used Date Smoking Tobacco: Never Passive Smoke Exposure: Never Smokeless Tobacco: Never Education Answer Date Recorded What is the [...] encounter Miscellaneous Notes * Telephone Encounter - Tomasa Lazcano RN - 12/07/2022 1:18 PM EDT Called pt. She states that she has a prescription for glasses but the place she used to go to in [place] is no longer there. Pt. Needs new eye exam and new glasses for blurry vision. I advised pt. That she can call [facility] in [place] to see when they have available appts and gave ptphone number. Will send referral request to PCP for [facility] but, notified pt. That they are booking very far out for appts. Protocol Used: Vision Loss or Change (Adult) Protocol-Based Disposition: See in Office or Video Visit within 2 Weeks Video visit not offered Positive Triage Question: * Blurred vision or visual changes and gradual onset (e.g., weeks, months) * All higher-acuity triage questions were negative Care Advice Discussed: * Reassurance and Education - Eye Strain * Rest the Eyes * Eye Exam * Telephone Encounter - Yanique Schreiber - 12/07/2022 12:20 PM EDT Symptom: Vision Loss or Change Outcome: Schedule an urgent appointment (within 1 hour) or talk to a nurse or provider soon Reason: Getting worse The caller accepted this outcome Patient is requesting for a referral for an tool repairer bench. Please call patient at [phone]. documented in this encounter Plan of Treatment Upcoming Encounters Date Type Department Care Team (Late st Contact Info) Description 09/27/2024 10:00 AM EDT Office Visit [facility] [address] [place] [address] Wendy Jensen MD [address] [place] [address] documented as of this encounter Visit Diagnoses Not on filedocumented in this encounter Care Teams Continuity Tester Relationship Specialty Start Date End Date Wendy Jensen MD [address] [place] [address] PCP - General Internal Medicine 09/01/22 documented as of this encounter
--- OUTSIDE RECORDS SUMMARY | 2024-08-24 09:19 | XMS_ITS | Encounter Summary ---
Author Organization [employer] Address [address] [facility] 7t [place] [address] Care Team Providers Care Regulatory Coordinator Name Role Phone Wendy Jensen MD Primary Care Provider [phone] Reason for Visit * Reason Comments Med Refill Encounter Details Date Type Department Care Team ([facility] Contact Info) Description 02/10/2023 Refill [facility] [address] [place], [place] [phone] Wendy Jensen MD [address] [place] [address] Social History Tobacco Use Types Packs/Day Years Used Date Smoking Tobacco: Never Passive Smoke Exposure: Never Smokeless Tobacco: Never Housing Stability Answer Date Recorded What is your housing situation today? I have leatha brothers 02/07/[address] you li ve. Do you have problems with any of the following? None of the above 02/07/2023 Food Insecurity Answer Date Recorded Within the past 12 months, y ou worried that your food would run out before you got money to buy more: Never True 02/07/2023 Within the past 12 months,th e food you bought just didn't last and you didn't have enough money to get more: Never True 12/2022 Transportation Answer Date Recorded In the past 12 months, has l ack of transportation kept you from medical appts, meetings, work or from getting things needed for daily living? No 02/07/2023 Utilities Answer Date Recorded In the past 12 months, has t he electric, gas, oil or water company threatened to shut off services in your home? No 02/07/2023 Education Answer Date Recorded What is the [...] Description 09/27/2024 10:00 AM EDT Office Visit [facility] [address] [place] [address] Wendy Jensen MD [address] [place] [address] documented as of this encounter Visit Diagnoses Not on filedocumented in this encounter Care Teams Regulatory Coordinator Relationship Specialty Start Date End Date Wendy Jensen MD [address] [place] [address] PCP - General Internal Medicine 09/01/22 documented as of this encounter
[2024-08-24 14:13] LABS: MANUAL DIFF FLAG NO
[2024-08-24 14:22] LABS: Basophils Percent Auto 0.4 % (0-2); Eosinophils Absolute Auto 0.3 X10*3/uL (0.0-0.4); Eosinophils Percent Auto 5.7 % (0-4); Hematocrit 40.3 % (37.0-47.0); Hemoglobin 13.6 g/dl (12.0-16.0); Imm Gran Abs Auto 0.01 X10*3/uL (0.00-0.03); Imm Gran Pct Auto 0.2 % (0.0-0.4); Lymphocytes Absolute Auto 1.6 X10*3/uL (1.2-4.9); Lymphocytes Percent Auto 30.6 % (20-40); Mean Corpuscular HGB Conc 33.7 g/dl (31.0-35.0); Mean Corpuscular Hemoglobin 30.5 pg (27.0-33.0); Mean Corpuscular Volume 90.4 fL (80.0-98.0); Mean Platelet Volume 10.2 fL (9.4-12.3); Monocytes Absolute Auto 0.4 X10*3/uL (0.1-1.2); Monocytes Percent Auto 8.4 % (2-11); Neutrophils Absolute Auto 2.9 x10*3/uL (2.0-8.3); Neutrophils Percent Auto 54.7 % (45-73); Platelet Count 249 X10*3/uL (160-400); Red Blood Count 4.46 X10*6/uL (4.20-5.50); White Blood Count 5.3 X10*3/uL (4.8-10.8)
[2024-08-24 14:42] LABS: Iron 66 mcg/dL (30-160); Magnesium 2.1 mg/dL (1.6-2.6); Percent Iron Saturation 23 % (15-50); Total Iron Binding Capacity 287 mcg/dL (228-428); Unsaturated Iron Binding 221 ug/dL
[2024-08-24 14:54] LABS: TSH reflex Free T4 0.49 uIU/mL (0.32-4.0); Vitamin D 25-OH Total 48.6 ng/mL (>30)
[2024-08-24 15:04] LABS: Folate 10.4 ng/mL (> or = 4.0); Vitamin B12 486 pg/mL (200-900)
== END 2024-08-24 09:07 | disposition home or self-care (01) ==
LOC: HO.CHCLDS 09:06
PROVIDERS: Visit Provider Pediatrics
DX: E03.9 Hypothyroidism, unspecified (principal); E55.9 Vitamin D deficiency, unspecified; D50.8 Other iron deficiency anemias
CPT/HCPCS: 36415; 82306; 82607; 82746; 83540; 83735; 84443; 85025